=== PATIENT | female | born 1990 | race Asian ===

== ENCOUNTER 2019-11-13 17:28 | Emergency (ER) | payer OTHER ==
[~2019-11-13] VITALS: Ht 157.5 cm; Wt 49.0 kg
[2019-11-13 18:47] VITALS: BP 143/78
--- NOTE | 2019-11-13 19:07 | NUR ---
Patient awake alert non distress .
--- NOTE | 2019-11-13 19:08 | NUR ---
DC home instruction given agrees to see PMD in 2 adys verbalized understanding .
== END 2019-11-13 19:50 | disposition home or self-care (01) ==
LOC: ER 17:33
DX: S39.012A Strain of muscle, fascia and tendon of lower back, initial encounter (principal); S16.1XXA Strain of muscle, fascia and tendon at neck level, initial encounter; Z88.0 Allergy status to penicillin; V49.49XA Driver injured in collision with other motor vehicles in traffic accident, initial encounter; Y93.89 Activity, other specified; Y92.488 Other paved roadways as the place of occurrence of the external cause; Y99.8 Other external cause status